=== PATIENT | female | born 1950 | race Native Hawaiian/Other Pacific Islander ===

== ENCOUNTER 2017-09-10 13:26 | Outpatient (CLI) | payer OTHER ==
[~2017-09-10 13:26] MED LIST: ALBU90AE13 INH; ALBUTEROL0.083 % IN; CADUET5 MG/20 MG PO; CARI350T15 PO; CLON1TAB18 PO; DULO60CA2 PO; FLUTMIS6 INH; METF500T PO; METH10TA2 PO; NAPROSYN500 MG PO; PERCOCET1 TA4 PO; RANI150T78 PO; SIMV40TA57; SIMV40TA57 PO; TIZA4TAB5 PO; TRIM800T12 PO
== END 2017-09-10 23:59 | disposition home or self-care (01) ==
LOC: MAMMO 13:26
DX: Z12.31 Encounter for screening mammogram for malignant neoplasm of breast (principal); Z13.820 Encounter for screening for osteoporosis; Z78.0 Asymptomatic menopausal state

== ENCOUNTER 2018-06-03 08:36 | Outpatient (CLI) | payer OTHER | END 2018-06-03 08:45 | disposition short-term general hospital (02) | LOC: AMB 08:36 | DX: I46.9 Cardiac arrest, cause unspecified (principal) | CPT/HCPCS: A0425; A0433 ==

== ENCOUNTER 2018-06-03 08:49 | Emergency (ER) | payer OTHER ==
[~2018-06-03] VITALS: Ht 162.6 cm; Wt 113.4 kg
[2018-06-03 08:58] VITALS: TEMP 97.5
[2018-06-03 09:44] LABS: PLATELET COUNT 130 K/uL (152-353)
[2018-06-03 10:15] LABS: POTASSIUM 4.9 mmol/L (3.6-5.2)
[2018-06-03 11:45] VITALS: BP 69/45
== END 2018-06-03 11:50 | disposition short-term general hospital (02) ==
LOC: ED 08:49
PROC: 0T9B70Z Drainage of Bladder with Drainage Device, Via Natural or Artificial Opening (ICD-10-PCS; principal; 2018-06-03)
DX: I46.9 Cardiac arrest, cause unspecified (principal); I21.9 Acute myocardial infarction, unspecified
CPT/HCPCS: 36558; 36600; 51702; 80053; 82550; 82553; 82805; 83605; 84484; 85007; 85027; 87040; 92950; 93005; 96360; 96361; 96365; 96375; 99291; J0171; J3490

== ENCOUNTER 2018-06-03 12:08 | Outpatient (CLI) | payer OTHER | END 2018-06-03 13:10 | disposition short-term general hospital (02) | LOC: AMB 12:08 | DX: I46.9 Cardiac arrest, cause unspecified (principal) | CPT/HCPCS: A0425; A0433 ==